=== PATIENT | female | born 1975 | race Caucasian/White ===

== ENCOUNTER 2017-12-09 07:09 | Day surgery (SDC) | payer MEDICAID ==
[2017-12-09 07:51] LABS: ADD MAN DIFF? NO
[2017-12-09 07:54] LABS: ABNORMAL IP MESSAGE 1; BASOPHILS % 0.2 % (0.0-2.0); EOSINOPHILS # 0.2 10^3/ul (0.0-0.5); EOSINOPHILS % 3.5 % (0.0-7.0); HEMATOCRIT 21.1 % (37.0-47.0); LYMPHOCYTES # 1.2 10^3/ul (0.8-2.9); LYMPHOCYTES % 22.3 % (15.0-51.0); MEAN CORPUSCULAR HEMOGLOBIN 16.3 pg (29.0-33.0); MEAN CORPUSCULAR HGB CONC 26.5 g/dl (32.0-37.0); MEAN CORPUSCULAR VOLUME 61.3 fl (82.0-101.0); MEAN PLATELET VOLUME 9.3 fl (7.4-10.4); MONOCYTE # 0.2 10^3/ul (0.3-0.9); MONOCYTES % 4.4 % (0.0-11.0); NEUTROPHIL # 3.8 10^3/ul (1.6-7.5); NEUTROPHILS % 69.4 % (39.0-77.0); PLATELET COUNT 265 10^3/UL (140-415); RED BLOOD COUNT 3.44 10^6/ul (4.20-5.40); RED CELL DISTRIBUTION WIDTH 19.9 % (11.5-14.5)
[2017-12-09 07:54] LABS: WHITE BLOOD COUNT 5.4 10^3/ul (4.8-10.8)
[2017-12-09 08:01] LABS: HEMOGLOBIN 5.6 g/dl (12.0-16.0)
[2017-12-09 08:07] LABS: HOLD TRANSMISSIONS 1; PATH REVIEW? YES; POSITIVE DIFF @See below
[2017-12-09 08:22] LABS: ALANINE AMINOTRANSFERASE 17 IU/L (13-69); ALBUMIN 3.9 g/dl (3.3-4.9); ALBUMIN/GLOBULIN RATIO 1.18; ALKALINE PHOSPHATASE 61 IU/L (42-121); ANION GAP 16 (8-16); ASPARTATE AMINO TRANSFERASE 12 IU/L (15-46); BILIRUBIN,INDIRECT 0.3 mg/dl (0-1.1); BILIRUBIN,TOTAL 0.3 mg/dl (0.2-1.3); CARBON DIOXIDE 25 mmol/L (21-31); CHLORIDE 105 mmol/L (97-110); GLUCOSE 108 mg/dl (70-220); TOTAL PROTEIN 7.2 g/dl (6.1-8.1)
[2017-12-09] MEDS ORDERED: LIDOCAINE 1%/EPI 30 ML INJ (08:22)
[2017-12-09] MEDS ORDERED: FERRIC SUBSULFATE 8 GM VIAL TOP ×2 (08:30)
[2017-12-09 08:32] LABS: BLOOD UREA NITROGEN 12 mg/dl (7-20); CALCIUM 8.8 mg/dl (8.4-10.2); CREATININE 0.65 mg/dl (0.44-1.00); POTASSIUM 3.4 mmol/L (3.5-5.1); SODIUM 143 mmol/L (135-144)
[2017-12-09 08:49] LABS: ADD MAN DIFF? NO
[2017-12-09 08:54] LABS: WHITE BLOOD COUNT 5.5 10^3/ul (4.8-10.8)
[2017-12-09 08:54] LABS: ABNORMAL IP MESSAGE 1; BASOPHILS % 0.2 % (0.0-2.0); EOSINOPHILS # 0.2 10^3/ul (0.0-0.5); EOSINOPHILS % 3.5 % (0.0-7.0); HEMATOCRIT 20.3 % (37.0-47.0); LYMPHOCYTES # 1.2 10^3/ul (0.8-2.9); LYMPHOCYTES % 22.5 % (15.0-51.0); MEAN CORPUSCULAR HEMOGLOBIN 16.1 pg (29.0-33.0); MEAN CORPUSCULAR HGB CONC 26.1 g/dl (32.0-37.0); MEAN CORPUSCULAR VOLUME 61.7 fl (82.0-101.0); MONOCYTE # 0.3 10^3/ul (0.3-0.9); MONOCYTES % 4.9 % (0.0-11.0); NEUTROPHIL # 3.8 10^3/ul (1.6-7.5); NEUTROPHILS % 68.7 % (39.0-77.0); PLATELET COUNT 266 10^3/UL (140-415); RED BLOOD COUNT 3.29 10^6/ul (4.20-5.40); RED CELL DISTRIBUTION WIDTH 19.7 % (11.5-14.5)
[2017-12-09 08:58] LABS: HOLD TRANSMISSIONS 1; POSITIVE DIFF @See below
[2017-12-09 08:59] LABS: HEMOGLOBIN 5.3 g/dl (12.0-16.0)
[2017-12-09 14:31] LABS: IMMEDIATE SPIN CROSSMATCH 1 2
== END 2017-12-09 09:40 | disposition home or self-care (01) ==
LOC: SDS 07:09
PROVIDERS: Pediatrics
DX: R87.613 High grade squamous intraepithelial lesion on cytologic smear of cervix (HGSIL) (principal); Z53.9 Procedure and treatment not carried out, unspecified reason
CPT/HCPCS: 36430; 80053; 85025; 86850; 86900; 86901; 86920; 93005

== ENCOUNTER 2017-12-09 09:38 | Inpatient (IN) | payer MEDICAID ==
[2017-12-09 10:37] LABS: ADD MAN DIFF? NO
[2017-12-09 10:58] LABS: ABNORMAL IP MESSAGE 1; BASOPHILS % 0.2 % (0.0-2.0); EOSINOPHILS # 0.2 10^3/ul (0.0-0.5); HEMATOCRIT 17.1 % (37.0-47.0); IRON 22 ug/dl (35-150); LYMPHOCYTES # 1.3 10^3/ul (0.8-2.9); LYMPHOCYTES % 26.8 % (15.0-51.0); MEAN CORPUSCULAR HEMOGLOBIN 16.3 pg (29.0-33.0); MEAN CORPUSCULAR HGB CONC 26.3 g/dl (32.0-37.0); MEAN PLATELET VOLUME 10.3 fl (7.4-10.4); MONOCYTE # 0.3 10^3/ul (0.3-0.9); MONOCYTES % 5.6 % (0.0-11.0); NEUTROPHIL # 3.2 10^3/ul (1.6-7.5); PLATELET COUNT 221 10^3/UL (140-415); RED BLOOD COUNT 2.76 10^6/ul (4.20-5.40)
[2017-12-09 11:01] LABS: RETICULOCYTE RBC 2.75
[2017-12-09 11:01] LABS: ALANINE AMINOTRANSFERASE 22 IU/L (13-69); ALBUMIN 3.1 g/dl (3.3-4.9); ALBUMIN/GLOBULIN RATIO 1.06; ALKALINE PHOSPHATASE 55 IU/L (42-121); ANION GAP 12 (8-16); ASPARTATE AMINO TRANSFERASE 10 IU/L (15-46); BILIRUBIN,INDIRECT 0.4 mg/dl (0-1.1); BILIRUBIN,TOTAL 0.4 mg/dl (0.2-1.3); BLOOD UREA NITROGEN 10 mg/dl (7-20); CALCIUM 7.8 mg/dl (8.4-10.2); CARBON DIOXIDE 23 mmol/L (21-31); CHLORIDE 113 mmol/L (97-110); CREATININE 0.56 mg/dl (0.44-1.00); GLUCOSE 90 mg/dl (70-220); POTASSIUM 3.3 mmol/L (3.5-5.1); RETICULOCYTE COUNT # 0.051 X10^6 (0.020-0.110); RETICULOCYTE COUNT % 1.8 % (0.5-1.5); SODIUM 145 mmol/L (135-144)
[2017-12-09 11:02] LABS: HEMOGLOBIN 4.5 g/dl (12.0-16.0); POSITIVE DIFF @See below
[2017-12-09 11:03] LABS: INR 1.06; PROTIME 13.9 Sec (11.9-14.9); PT RATIO 1.1
[2017-12-09 11:04] LABS: PARTIAL THROMBOPLASTIN TIME 25.8 Sec (25.0-35.0)
[2017-12-09 11:09] LABS: % IRON SATURATION 5 % SAT (22-52); TOTAL IRON BINDING CAPACITY 431 ug/dl (241-421)
[2017-12-09 12:08] LABS: FOLATE 7.2 ng/ml (2.8-20.0)
[2017-12-09] MEDS ORDERED: ONDANSETRON 4 MG INJ IV ×2 (12:30→14:30)
[2017-12-09] MEDS ORDERED: ACETAMINOPHEN 325 MG TAB PO ×2 (12:30→14:30)
[2017-12-09] MEDS ORDERED: HYDROCODONE/APAP (5/325) TAB PO (14:30)
[2017-12-09] MEDS ORDERED: DOCUSATE SODIUM 100 MG CAP PO (14:30)
[2017-12-09] MEDS ORDERED: morphine 2 MG INJ IV (14:30)
[2017-12-09] MEDS ORDERED: NACL 0.9% 3 ML SYG IV (14:30)
[2017-12-09] MEDS ORDERED: LORAZEPAM 0.5 MG TAB PO (14:30)
[2017-12-09] MEDS ORDERED: MAGNESIUM HYDROXIDE 30ML CUP PO (14:30)
[2017-12-09] MEDS: IOHEXOL 300MG/ML 150 ML BTL (15:56)
[2017-12-09] MEDS: SOD CHLORIDE 0.9% 100 ML (15:56)
[2017-12-09] MEDS: SOD CHLORIDE 0.9% 1,000 ML IV (17:39)
[2017-12-09 18:46] LABS: HEMATOCRIT 29.5 % (37.0-47.0); HEMOGLOBIN 8.6 g/dl (12.0-16.0)
[2017-12-10] MEDS: SOD CHLORIDE 0.9% 1,000 ML IV (04:26)
[2017-12-10 05:21] LABS: ADD MAN DIFF? NO
[2017-12-10 05:25] LABS: ABNORMAL IP MESSAGE 1; BASOPHIL # 0.1 10^3/ul (0.0-0.1); BASOPHILS % 0.7 % (0.0-2.0); EOSINOPHILS # 0.2 10^3/ul (0.0-0.5); EOSINOPHILS % 2.9 % (0.0-7.0); LYMPHOCYTES # 2.1 10^3/ul (0.8-2.9); LYMPHOCYTES % 25.4 % (15.0-51.0); MEAN CORPUSCULAR HEMOGLOBIN 19.2 pg (29.0-33.0); MEAN CORPUSCULAR HGB CONC 28.6 g/dl (32.0-37.0); MEAN CORPUSCULAR VOLUME 67.1 fl (82.0-101.0); MEAN PLATELET VOLUME 9.5 fl (7.4-10.4); MONOCYTE # 0.4 10^3/ul (0.3-0.9); MONOCYTES % 5.2 % (0.0-11.0); NEUTROPHIL # 5.4 10^3/ul (1.6-7.5); NEUTROPHILS % 65.4 % (39.0-77.0); PLATELET COUNT 263 10^3/UL (140-415); RED BLOOD COUNT 4.17 10^6/ul (4.20-5.40); RED CELL DISTRIBUTION WIDTH 25.3 % (11.5-14.5)
[2017-12-10 05:25] LABS: WHITE BLOOD COUNT 8.3 10^3/ul (4.8-10.8)
[2017-12-10 05:41] LABS: POSITIVE DIFF @See below
[2017-12-10 05:47] LABS: ALANINE AMINOTRANSFERASE 21 IU/L (13-69); ALBUMIN 3.4 g/dl (3.3-4.9); ALBUMIN/GLOBULIN RATIO 1.13; ALKALINE PHOSPHATASE 62 IU/L (42-121); ANION GAP 12 (8-16); ASPARTATE AMINO TRANSFERASE 15 IU/L (15-46); BLOOD UREA NITROGEN 8 mg/dl (7-20); CALCIUM 8.7 mg/dl (8.4-10.2); CARBON DIOXIDE 25 mmol/L (21-31); CHLORIDE 109 mmol/L (97-110); CHOL/HDL RATIO 3.7 RATIO; CHOLESTEROL 128 mg/dl (100-200); CREATININE 0.63 mg/dl (0.44-1.00); GLUCOSE 104 mg/dl (70-220); HDL CHOLESTEROL 34 mg/dl (34-88); LDL CHOLESTEROL,CALCULATED 68 mg/dl; MAGNESIUM 1.7 mg/dl (1.7-2.5); POTASSIUM 3.5 mmol/L (3.5-5.1); SODIUM 142 mmol/L (135-144); TOTAL PROTEIN 6.4 g/dl (6.1-8.1); TRIGLYCERIDES 129 mg/dl (0-149)
[2017-12-10] MEDS: SOD CHLORIDE 0.9% 250 ML IV* (11:37)
[2017-12-10 12:02] LABS: HAPTOGLOBIN 104 mg/dL (43-212); TRANSFERRIN 354 mg/dL (188-341)
[2017-12-10] MEDS: SOD CHLORIDE 0.45% 1,000 ML IV (13:00)
[2017-12-10 16:14] LABS: IMMEDIATE SPIN CROSSMATCH 1 1
[2017-12-10] MEDS: BISACODYL (EC) 5 MG TAB PO (16:28)
[2017-12-10] MEDS: POLYETHYLENE GLYCOL 3350 119 GM POWDER PO (17:14)
[2017-12-10] MEDS: MAGNESIUM CITRATE 300 ML BTL PO (17:14)
[2017-12-11 05:16] LABS: ADD MAN DIFF? NO
[2017-12-11 05:20] LABS: WHITE BLOOD COUNT 8.5 10^3/ul (4.8-10.8)
[2017-12-11 05:20] LABS: ABNORMAL IP MESSAGE 1; BASOPHILS % 0.5 % (0.0-2.0); EOSINOPHILS # 0.3 10^3/ul (0.0-0.5); EOSINOPHILS % 3.1 % (0.0-7.0); HEMATOCRIT 32.9 % (37.0-47.0); HEMOGLOBIN 9.6 g/dl (12.0-16.0); LYMPHOCYTES # 2.1 10^3/ul (0.8-2.9); LYMPHOCYTES % 24.3 % (15.0-51.0); MEAN CORPUSCULAR HEMOGLOBIN 19.9 pg (29.0-33.0); MEAN CORPUSCULAR HGB CONC 29.2 g/dl (32.0-37.0); MEAN CORPUSCULAR VOLUME 68.3 fl (82.0-101.0); MEAN PLATELET VOLUME 9.8 fl (7.4-10.4); MONOCYTE # 0.4 10^3/ul (0.3-0.9); MONOCYTES % 4.1 % (0.0-11.0); NEUTROPHIL # 5.7 10^3/ul (1.6-7.5); NEUTROPHILS % 67.8 % (39.0-77.0); PLATELET COUNT 305 10^3/UL (140-415); RED BLOOD COUNT 4.82 10^6/ul (4.20-5.40); RED CELL DISTRIBUTION WIDTH 25.8 % (11.5-14.5)
[2017-12-11 05:34] LABS: POSITIVE DIFF @See below
[2017-12-11 05:39] LABS: ANION GAP 17 (8-16); BLOOD UREA NITROGEN 10 mg/dl (7-20); CALCIUM 9.1 mg/dl (8.4-10.2); CARBON DIOXIDE 27 mmol/L (21-31); CHLORIDE 104 mmol/L (97-110); CREATININE 0.69 mg/dl (0.44-1.00); GLUCOSE 98 mg/dl (70-220); MAGNESIUM 2.2 mg/dl (1.7-2.5); POTASSIUM 3.6 mmol/L (3.5-5.1); SODIUM 144 mmol/L (135-144)
[2017-12-11] MEDS: POLYETHYLENE GLYCOL 3350 119 GM POWDER PO (06:08)
[2017-12-11] MEDS: BISACODYL (EC) 5 MG TAB PO (08:42)
[2017-12-11] MEDS: SOD CHLORIDE 0.45% 1,000 ML IV ×2 (09:00→19:07)
[2017-12-11] MEDS: PROPOFOL 40 ML (19:09)
[2017-12-12 05:49] LABS: ADD MAN DIFF? NO
[2017-12-12 06:11] LABS: ABNORMAL IP MESSAGE 1; BASOPHILS % 0.4 % (0.0-2.0); EOSINOPHILS # 0.2 10^3/ul (0.0-0.5); EOSINOPHILS % 2.4 % (0.0-7.0); HEMATOCRIT 29.7 % (37.0-47.0); HEMOGLOBIN 8.8 g/dl (12.0-16.0); LYMPHOCYTES # 1.4 10^3/ul (0.8-2.9); LYMPHOCYTES % 19.3 % (15.0-51.0); MEAN CORPUSCULAR HEMOGLOBIN 20.2 pg (29.0-33.0); MEAN CORPUSCULAR HGB CONC 29.6 g/dl (32.0-37.0); MEAN CORPUSCULAR VOLUME 68.3 fl (82.0-101.0); MEAN PLATELET VOLUME 9.8 fl (7.4-10.4); MONOCYTE # 0.4 10^3/ul (0.3-0.9); NEUTROPHIL # 5.1 10^3/ul (1.6-7.5); NEUTROPHILS % 71.5 % (39.0-77.0); PLATELET COUNT 274 10^3/UL (140-415); RED BLOOD COUNT 4.35 10^6/ul (4.20-5.40)
[2017-12-12 06:11] LABS: WHITE BLOOD COUNT 7.2 10^3/ul (4.8-10.8)
[2017-12-12 06:15] LABS: ANION GAP 11 (8-16); BLOOD UREA NITROGEN 13 mg/dl (7-20); CALCIUM 8.8 mg/dl (8.4-10.2); CARBON DIOXIDE 28 mmol/L (21-31); CHLORIDE 109 mmol/L (97-110); CREATININE 0.68 mg/dl (0.44-1.00); GLUCOSE 102 mg/dl (70-220); MAGNESIUM 1.9 mg/dl (1.7-2.5); PHOSPHORUS 4.5 mg/dl (2.5-4.9); POTASSIUM 3.7 mmol/L (3.5-5.1); SODIUM 144 mmol/L (135-144)
[2017-12-12 06:25] LABS: POSITIVE DIFF @See below
[2017-12-12] MEDS: BARIUM SULF 2% 450 ML BTL (BERRY SMOOTHIE) PO (11:00)
[2017-12-13 05:50] LABS: ADD MAN DIFF? NO
[2017-12-13 05:59] LABS: ABNORMAL IP MESSAGE 1; BASOPHILS % 0.5 % (0.0-2.0); EOSINOPHILS # 0.3 10^3/ul (0.0-0.5); HEMATOCRIT 33.4 % (37.0-47.0); HEMOGLOBIN 9.7 g/dl (12.0-16.0); LYMPHOCYTES % 32.9 % (15.0-51.0); MEAN CORPUSCULAR HEMOGLOBIN 20.3 pg (29.0-33.0); MEAN CORPUSCULAR VOLUME 69.9 fl (82.0-101.0); MEAN PLATELET VOLUME 10.6 fl (7.4-10.4); MONOCYTE # 0.4 10^3/ul (0.3-0.9); MONOCYTES % 7.1 % (0.0-11.0); NEUTROPHIL # 3.4 10^3/ul (1.6-7.5); NEUTROPHILS % 55.2 % (39.0-77.0); PLATELET COUNT 294 10^3/UL (140-415); RED BLOOD COUNT 4.78 10^6/ul (4.20-5.40); RED CELL DISTRIBUTION WIDTH 27.5 % (11.5-14.5)
[2017-12-13 05:59] LABS: WHITE BLOOD COUNT 6.2 10^3/ul (4.8-10.8)
[2017-12-13 06:30] LABS: ANION GAP 14 (8-16); BLOOD UREA NITROGEN 11 mg/dl (7-20); CALCIUM 9.5 mg/dl (8.4-10.2); CARBON DIOXIDE 26 mmol/L (21-31); CHLORIDE 108 mmol/L (97-110); CREATININE 0.71 mg/dl (0.44-1.00); GLUCOSE 102 mg/dl (70-220); MAGNESIUM 1.8 mg/dl (1.7-2.5); PHOSPHORUS 4.5 mg/dl (2.5-4.9); POTASSIUM 3.8 mmol/L (3.5-5.1); SODIUM 144 mmol/L (135-144)
[2017-12-13 06:35] LABS: POSITIVE DIFF @See below
[2017-12-13] MEDS: GLUCAGON 1 MG INJ (11:25)
[2017-12-14 05:34] LABS: ADD MAN DIFF? NO
[2017-12-14 05:38] LABS: ABNORMAL IP MESSAGE 1; BASOPHILS % 0.4 % (0.0-2.0); EOSINOPHILS # 0.3 10^3/ul (0.0-0.5); EOSINOPHILS % 3.7 % (0.0-7.0); HEMATOCRIT 33.8 % (37.0-47.0); HEMOGLOBIN 9.8 g/dl (12.0-16.0); LYMPHOCYTES # 1.9 10^3/ul (0.8-2.9); LYMPHOCYTES % 28.5 % (15.0-51.0); MEAN CORPUSCULAR HEMOGLOBIN 20.2 pg (29.0-33.0); MEAN CORPUSCULAR VOLUME 69.7 fl (82.0-101.0); MEAN PLATELET VOLUME 9.9 fl (7.4-10.4); MONOCYTE # 0.4 10^3/ul (0.3-0.9); MONOCYTES % 5.5 % (0.0-11.0); NEUTROPHIL # 4.2 10^3/ul (1.6-7.5); NEUTROPHILS % 61.8 % (39.0-77.0); PLATELET COUNT 273 10^3/UL (140-415); RED BLOOD COUNT 4.85 10^6/ul (4.20-5.40); RED CELL DISTRIBUTION WIDTH 27.6 % (11.5-14.5)
[2017-12-14 05:38] LABS: WHITE BLOOD COUNT 6.8 10^3/ul (4.8-10.8)
[2017-12-14 05:52] LABS: POSITIVE DIFF @See below
[2017-12-14 06:14] LABS: ANION GAP 15 (8-16); BLOOD UREA NITROGEN 13 mg/dl (7-20); CALCIUM 9.6 mg/dl (8.4-10.2); CARBON DIOXIDE 27 mmol/L (21-31); CHLORIDE 107 mmol/L (97-110); CREATININE 0.71 mg/dl (0.44-1.00); GLUCOSE 103 mg/dl (70-220); MAGNESIUM 1.7 mg/dl (1.7-2.5); PHOSPHORUS 4.5 mg/dl (2.5-4.9); POTASSIUM 3.9 mmol/L (3.5-5.1); SODIUM 145 mmol/L (135-144)
[2017-12-14] MEDS: SOD CHLORIDE 0.9% 100 ML (08:01)
[2017-12-14] MEDS: IOHEXOL 300MG/ML 150 ML BTL (08:01)
[2017-12-14] MEDS: BARIUM SULFATE 0.1% 450 ML BTL (VOLUMEN) PO ×2 (08:02→08:03)
== END 2017-12-14 12:30 | disposition home or self-care (01) | DRG 812 ==
LOC: E/R 09:38 → MS1 12:30
PROC: 0DB98ZX Excision of Duodenum, Via Natural or Artificial Opening Endoscopic, Diagnostic (ICD-10-PCS; principal; 2017-12-11 17:20)
PROC: 0DJD8ZZ Inspection of Lower Intestinal Tract, Via Natural or Artificial Opening Endoscopic (ICD-10-PCS; 2017-12-11 17:20)
PROC: 30233N1 Transfusion of Nonautologous Red Blood Cells into Peripheral Vein, Percutaneous Approach (ICD-10-PCS; 2017-12-11 17:20)
DX: D50.9 Iron deficiency anemia, unspecified (principal); K76.6 Portal hypertension; G43.909 Migraine, unspecified, not intractable, without status migrainosus; I86.8 Varicose veins of other specified sites
CPT/HCPCS: 36415; 36430; 74177; 74178; 80048; 80053; 80061; 82607; 82728; 82746; 83010; 83540; 83735; 84100; 84466; 84703; 85014; 85018; 85025; 85045; 85610; 85730; 86850; 86900; 86901; 86920; 88309; 99285-25

== ENCOUNTER 2018-01-05 10:46 | Day surgery (SDC) | payer MEDICAID ==
[2018-01-05] MEDS ORDERED: LACTATED RINGER'S 1,000 ML IV (11:30)
[2018-01-05 12:11] LABS: ADD MAN DIFF? NO
[2018-01-05 12:18] LABS: ABNORMAL IP MESSAGE 1; BASOPHILS % 0.3 % (0.0-2.0); EOSINOPHILS # 0.2 10^3/ul (0.0-0.5); EOSINOPHILS % 2.3 % (0.0-7.0); HEMATOCRIT 35.2 % (37.0-47.0); LYMPHOCYTES # 1.4 10^3/ul (0.8-2.9); LYMPHOCYTES % 20.9 % (15.0-51.0); MEAN CORPUSCULAR HEMOGLOBIN 23.6 pg (29.0-33.0); MEAN CORPUSCULAR HGB CONC 31.3 g/dl (32.0-37.0); MEAN CORPUSCULAR VOLUME 75.4 fl (82.0-101.0); MONOCYTE # 0.3 10^3/ul (0.3-0.9); NEUTROPHIL # 4.7 10^3/ul (1.6-7.5); NEUTROPHILS % 72.2 % (39.0-77.0); RED BLOOD COUNT 4.67 10^6/ul (4.20-5.40)
[2018-01-05 12:18] LABS: WHITE BLOOD COUNT 6.5 10^3/ul (4.8-10.8)
[2018-01-05 12:25] LABS: PLATELET COUNT 201 10^3/UL (140-415)
[2018-01-05 12:26] LABS: POSITIVE DIFF @See below
[2018-01-05] MEDS ORDERED: STRONG IODINE 14 ML SOLUTION TOP (12:29)
[2018-01-05 12:32] LABS: ALANINE AMINOTRANSFERASE 27 IU/L (13-69); ALBUMIN 4.2 g/dl (3.3-4.9); ALBUMIN/GLOBULIN RATIO 1.13; ALKALINE PHOSPHATASE 73 IU/L (42-121); ANION GAP 16 (8-16); ASPARTATE AMINO TRANSFERASE 18 IU/L (15-46); BILIRUBIN,INDIRECT 0.7 mg/dl (0-1.1); BILIRUBIN,TOTAL 0.7 mg/dl (0.2-1.3); CARBON DIOXIDE 27 mmol/L (21-31); CHLORIDE 107 mmol/L (97-110); GLUCOSE 92 mg/dl (70-220); TOTAL PROTEIN 7.9 g/dl (6.1-8.1)
[2018-01-05 12:33] LABS: BLOOD UREA NITROGEN 9 mg/dl (7-20); CALCIUM 9.2 mg/dl (8.4-10.2); CREATININE 0.63 mg/dl (0.44-1.00); POTASSIUM 3.8 mmol/L (3.5-5.1)
[2018-01-05 12:36] LABS: SODIUM 146 mmol/L (135-144)
[2018-01-05] MEDS ORDERED: ONDANSETRON 4 MG INJ (12:51)
[2018-01-05] MEDS ORDERED: PROPOFOL 20 ML (12:51)
[2018-01-05] MEDS ORDERED: CEFAZOLIN 1 GM INJ (12:51)
[2018-01-05] MEDS ORDERED: MIDAZOLAM 1 MG/ML 2 ML INJ (12:51)
[2018-01-05] MEDS ORDERED: METOCLOPRAMIDE 10 MG INJ (12:51)
[2018-01-05] MEDS ORDERED: KETOROLAC 30 MG INJ (12:51)
[2018-01-05] MEDS ORDERED: FENTAnyl 50 MCG/ML VIAL (13:01)
[2018-01-05] MEDS: FERRIC SUBSULFATE 8 GM VIAL TOP (13:15)
[2018-01-05] MEDS: LIDOCAINE 1%/EPI 30 ML INJ (13:15)
[2018-01-05] MEDS ORDERED: ONDANSETRON 4 MG INJ IV (13:30)
[2018-01-05] MEDS ORDERED: OXYCODONE/ACETAMINOPHEN (5/325) TAB PO ×2 (13:30)
[2018-01-05] MEDS ORDERED: HYDROmorphONE (0.2 MG/ML) 10ML SYG IV ×3 (13:30)
[2018-01-05] MEDS ORDERED: EPHEDrine SULFATE 50 MG/5 ML SYG IV (13:30)
[2018-01-05] MEDS ORDERED: MEPERIDINE 25 MG INJ IV (13:30)
[2018-01-05] MEDS ORDERED: DIPHENHYDRAMINE 50 MG INJ IV (13:30)
== END 2018-01-05 14:59 | disposition home or self-care (01) ==
LOC: SDS 10:46
DX: R87.613 High grade squamous intraepithelial lesion on cytologic smear of cervix (HGSIL) (principal)
CPT/HCPCS: 57522; 80053; 85025; 86850; 86900; 86901; 88305; 93005

== ENCOUNTER 2018-08-30 18:18 | Emergency (ER) | payer OTHER, MEDICAID ==
[2018-08-30 22:06] LABS: ADD MAN DIFF? NO
[2018-08-30 22:11] LABS: BASOPHIL # 0.1 10^3/ul (0.0-0.1); BASOPHILS % 0.4 % (0.0-2.0); EOSINOPHILS # 0.1 10^3/ul (0.0-0.5); EOSINOPHILS % 0.8 % (0.0-7.0); HEMATOCRIT 37.3 % (37.0-47.0); HEMOGLOBIN 12.6 g/dl (12.0-16.0); LYMPHOCYTES # 2.3 10^3/ul (0.8-2.9); LYMPHOCYTES % 20.2 % (15.0-51.0); MEAN CORPUSCULAR HEMOGLOBIN 27.2 pg (29.0-33.0); MEAN CORPUSCULAR HGB CONC 33.8 g/dl (32.0-37.0); MEAN CORPUSCULAR VOLUME 80.4 fl (82.0-101.0); MEAN PLATELET VOLUME 9.5 fl (7.4-10.4); MONOCYTE # 0.5 10^3/ul (0.3-0.9); MONOCYTES % 4.3 % (0.0-11.0); NEUTROPHIL # 8.3 10^3/ul (1.6-7.5); PLATELET COUNT 185 10^3/UL (140-415); RED BLOOD COUNT 4.64 10^6/ul (4.20-5.40); RED CELL DISTRIBUTION WIDTH 14.3 % (11.5-14.5)
[2018-08-30 22:11] LABS: WHITE BLOOD COUNT 11.2 10^3/ul (4.8-10.8)
[2018-08-30 22:12] LABS: URINE BLOOD (Dip) POC Negative (NEGATIVE); URINE GLUCOSE (Dip) POC Negative (NEGATIVE); URINE KETONES (Dip) POC Negative (NEGATIVE); URINE LEUKOCYTE EST (Dip) POC Negative (NEGATIVE); URINE NITRITE (Dip) POC Negative (NEGATIVE); URINE TOTAL PROTEIN POC Negative (NEGATIVE)
[2018-08-30] MEDS: SOD CHLORIDE 0.9% 1,000 ML IV (22:16)
[2018-08-30] MEDS: ONDANSETRON 4 MG INJ IV (22:16)
[2018-08-30] MEDS: KETOROLAC 15 MG INJ IV (22:24)
[2018-08-30 22:27] LABS: ADD UMIC NO; UR ASCORBIC ACID NEGATIVE (NEGATIVE); UR BILIRUBIN (Dip) NEGATIVE (NEGATIVE); UR BLOOD (Dip) NEGATIVE (NEGATIVE); UR CLARITY CLEAR (CLEAR); UR COLOR YELLOW (YELLOW); UR GLUCOSE (Dip) NEGATIVE (NEGATIVE); UR KETONES (Dip) NEGATIVE (NEGATIVE); UR LEUKOCYTE ESTERASE (Dip) NEGATIVE Leu/ul (NEGATIVE); UR NITRITE (Dip) NEGATIVE (NEGATIVE); UR SPECIFIC GRAVITY (Dip) 1.012 (1.003-1.030); UR TOTAL PROTEIN (Dip) NEGATIVE (NEGATIVE); UR UROBILINOGEN (Dip) NEGATIVE (NEGATIVE)
[2018-08-30 22:29] LABS: ALANINE AMINOTRANSFERASE 28 IU/L (13-69); ALBUMIN 4.3 g/dl (3.3-4.9); ALKALINE PHOSPHATASE 89 IU/L (42-121); ANION GAP 14 (5-13); ASPARTATE AMINO TRANSFERASE 24 IU/L (15-46); BILIRUBIN,INDIRECT 0.4 mg/dl (0-1.1); BILIRUBIN,TOTAL 0.4 mg/dl (0.2-1.3); BLOOD UREA NITROGEN 10 mg/dl (7-20); CALCIUM 9.3 mg/dl (8.4-10.2); CARBON DIOXIDE 23 mmol/L (21-31); CHLORIDE 106 mmol/L (97-110); CREATININE 0.54 mg/dl (0.44-1.00); Estimated GFR > 60 mL/min (>60); GLUCOSE 95 mg/dl (70-220); LIPASE 45 U/L (23-300); POTASSIUM 3.7 mmol/L (3.5-5.1); SODIUM 143 mmol/L (135-144); TOTAL PROTEIN 8.1 g/dl (6.1-8.1)
[2018-08-30 22:30] LABS: ALBUMIN/GLOBULIN RATIO 1.13
[2018-08-31 08:26] LABS: URINE BLOOD (Dip) POC Negative (NEGATIVE); URINE GLUCOSE (Dip) POC Negative (NEGATIVE); URINE KETONES (Dip) POC Negative (NEGATIVE); URINE LEUKOCYTE EST (Dip) POC Negative (NEGATIVE); URINE NITRITE (Dip) POC Negative (NEGATIVE); URINE TOTAL PROTEIN POC Negative (NEGATIVE)
== END 2018-08-30 23:24 | disposition home or self-care (01) ==
LOC: E/R 18:18
DX: K42.9 Umbilical hernia without obstruction or gangrene (principal)
CPT/HCPCS: 36415; 80053; 81003; 81025; 83690; 85025; 96374; 96375; 99284-25